=== PATIENT | male | born 1945 | race Caucasian/White ===

== ENCOUNTER 2020-10-28 22:55 | Observation (INO) | payer BC, OTHER ==
[~2020-10-28] VITALS: Ht 165.1 cm; Wt 72.6 kg
[2020-10-29] MEDS ORDERED: PROTONIX40 MG PO (00:32)
[2020-10-29] MEDS ORDERED: ASPIRIN CHEWABL81 MG PO (00:32)
[2020-10-29] MEDS ORDERED: COREG25 MG PO (00:33)
[2020-10-29] MEDS ORDERED: ISOSORBIDE MON120 MG PO (00:33)
[2020-10-29] MEDS ORDERED: NEURONTIN800 MG PO (00:34)
[2020-10-29] MEDS ORDERED: RANEXA500 MG PO (00:35)
[2020-10-29] MEDS ORDERED: RESTORIL30 MG PO (00:35)
[2020-10-29] MEDS ORDERED: OXYBUTYNIN CHLOR5 MG PO (00:37)
[2020-10-29] MEDS ORDERED: CYCLOBENZAPRINE5 MG PO (00:38)
[2020-10-29] MEDS ORDERED: NITROGLYCERIN0.4 MG SL (11:45)
== END 2020-10-29 17:55 | disposition home or self-care (01) ==
LOC: MED SURG 4 22:55
PROVIDERS: ADMIT Internal Medicine
DX: R07.89 Other chest pain (principal); R13.10 Dysphagia, unspecified; I25.10 Atherosclerotic heart disease of native coronary artery without angina pectoris; I10 Essential (primary) hypertension; E78.5 Hyperlipidemia, unspecified; J45.909 Unspecified asthma, uncomplicated; K21.9 Gastro-esophageal reflux disease without esophagitis; Z95.1 Presence of aortocoronary bypass graft; Z98.890 Other specified postprocedural states; Z82.49 Family history of ischemic heart disease and other diseases of the circulatory system; Z88.8 Allergy status to other drugs, medicaments and biological substances; Z79.82 Long term (current) use of aspirin; Z79.899 Other long term (current) drug therapy
CPT/HCPCS: 36415; 82550; 82553; 84484; 93005; G0378; G0379